=== PATIENT | male | born 1970 ===

== ENCOUNTER 2025-05-15 14:34 | Emergency (ER) | payer OTHER ==
[~2025-05-15] VITALS: Ht 167.6 cm; Wt 70.0 kg
[2025-05-15 15:26] VITALS: BP 126/86; PULSE 66; RESP 16; TEMP 98.1; O2SAT 97
== END 2025-05-15 19:30 ==
LOC: EMS 14:34
DX: G89.29 Other chronic pain (principal); M25.551 Pain in right hip; W17.89XA Other fall from one level to another, initial encounter
CPT/HCPCS: 73502; 99284